=== PATIENT | male | born 1950 | race Caucasian/White ===

== ENCOUNTER 2022-10-29 18:13 | Inpatient (IN) ==
[2022-10-29] MEDS ORDERED: ONDANSETRON 4 MG/2 ML VIAL IV STA (18:55)
[2022-10-29] MEDS ORDERED: HYDROmorphone 1 MG/1 ML SYRINGE IV STA (18:55)
[2022-10-29] MEDS ORDERED: SODIUM CHLORIDE 0.9% 500 ML IV STA (18:55)
[2022-10-29 19:06] LABS: Basophils # 0.1 10*3/uL (0.0-0.2); Basophils % 0.4 % (0.0-0.8); Eosinophils % 0.3 % (0.00-10.9); Hematocrit 36.4 VOL% (42.0-52.0); Hemoglobin 12.2 GM/DL (14.0-18.0); Immature Granulocytes % 1.4 %; Immature Granulocytes Absolute 0.17 #; Lymphocytes # 1.3 10*3/uL (1.4-4.0); Lymphocytes % 10.8 % (21.2-54.2); Mean Corpuscular HGB Conc 33.5 GM/DL (32-36); Mean Corpuscular Volume 94.8 FL (87-102); Mean Platelet Volume 9.6 FL (9.6-12.0); Monocytes # 0.7 10*3/uL (0.11-0.8); Monocytes % 5.7 % (1.7-12.7); Neutrophils % 81.4 % (38.7-73.9); Platelet Count 219 T/CUMM (130-400); Red Blood Count 3.84 MC/CUMM (3.8-5.5); Red Cell Distribution Width 12.6 % (9.3-17.3); White Blood Count 11.8 T/CUMM (4-12)
[2022-10-29 19:12] LABS: INR 0.9
[2022-10-29 19:17] LABS: Alanine Aminotransferase 37 U/L (16-61); Albumin 3.9 G/DL (3.4-5.0); Alkaline Phosphatase 78 U/L (45-117); Aspartate Amino Transferase 27 U/L (0-37); Bilirubin,Total < 0.39 MG/DL (0.20-1.00); Blood Urea Nitrogen 26 MG/DL (7-18); Calcium 8.8 MG/DL (8.5-10.1); Carbon Dioxide 26 MMOL/L (21-32); Chloride 106 MMOL/L (98-107); Glucose 151 MG/DL (74-106); Osmolality,Calculated 284.5 MOS/KG (273-304); Potassium 4.1 MMOL/L (3.5-5.1); Sodium 139 MMOL/L (136-145); Total Protein 6.9 G/DL (6.4-8.2)
[2022-10-29] MEDS ORDERED: hydrALAZINE 20 MG/1 ML VIAL IV PRN (20:35)
[2022-10-29] MEDS ORDERED: MAGNESIUM SULF RIDER 2 GM/50 ML PREMIX IV ONE (20:35)
[2022-10-29 21:49] LABS: Calcium Oxalate Crystals,Urine Occasional /HPF (Few); Mucus,Urine Occasional /LPF (Occasional); RBC,Urine 24 /HPF (0-4); Squamous Epithelial Cell,Urine Occasional /HPF (0-10)
[2022-10-29 21:50] LABS: Bilirubin,Urine Negative (Negative); Blood, Urine Moderate mg/dL (Negative); Glucose,Urine (UA) Negative (Negative); Ketones,Urine Negative (Negative); Nitrite,Urine Negative (Negative); Protein,Urine Negative (Negative); Urine Appearance Clear (Clear); Urine Color Yellow (Yellow); Urine Specific Gravity >= 1.030 (1.001-1.035); Urine Urobilinogen 0.2 eU/dL (<2.0)
[2022-10-29] MEDS ORDERED: LACTATED RINGERS 1,000 ML IV SCH (22:30)
[2022-10-29] MEDS: HYDROmorphone 1 MG/1 ML SYRINGE IV PRN (23:16)
[2022-10-30] MEDS ORDERED: ONDANSETRON 4 MG/2 ML VIAL IV PRN ×2 (00:37→12:19)
[2022-10-30] MEDS ORDERED: MAGNESIUM HYDROXIDE SUSP 30 ML UDCUP PO PRN (00:37)
[2022-10-30] MEDS ORDERED: CLINDAMYCIN INJ 900 MG/50 ML PREMIX IV ONE ×3 (01:00→11:00)
[2022-10-30 01:56] LABS: Basophils # 0.1 10*3/uL (0.0-0.2); Basophils % 0.4 % (0.0-0.8); Eosinophils % 0.2 % (0.00-10.9); Hematocrit 33.5 VOL% (42.0-52.0); Hemoglobin 11.2 GM/DL (14.0-18.0); Immature Granulocytes % 0.6 %; Immature Granulocytes Absolute 0.08 #; Lymphocytes # 1.2 10*3/uL (1.4-4.0); Lymphocytes % 9.4 % (21.2-54.2); Mean Corpuscular HGB Conc 33.4 GM/DL (32-36); Mean Corpuscular Volume 94.9 FL (87-102); Mean Platelet Volume 9.2 FL (9.6-12.0); Monocytes % 7.8 % (1.7-12.7); Neutrophils % 81.6 % (38.7-73.9); Platelet Count 197 T/CUMM (130-400); Red Blood Count 3.53 MC/CUMM (3.8-5.5); Red Cell Distribution Width 12.7 % (9.3-17.3); White Blood Count 13.2 T/CUMM (4-12)
[2022-10-30 02:16] LABS: Albumin 3.6 G/DL (3.4-5.0); Bilirubin,Total 0.5 MG/DL (0.20-1.00); Calcium 8.6 MG/DL (8.5-10.1); Potassium 3.8 MMOL/L (3.5-5.1); Total Protein 6.2 G/DL (6.4-8.2)
[2022-10-30] MEDS: HYDROmorphone 1 MG/1 ML SYRINGE IV PRN ×2 (04:55→20:45)
[2022-10-30] MEDS ORDERED: LACTATED RINGERS 1,000 ML IV SCH (09:00)
[2022-10-30] MEDS ORDERED: fentaNYL 100 MCG/2 ML VIAL ONE (09:18)
[2022-10-30] MEDS ORDERED: MIDAZOLAM 2 MG/2 ML VIAL ONE (09:18)
[2022-10-30] MEDS ORDERED: LIDOCAINE 2% 5 ML VIAL ONE (09:19)
[2022-10-30] MEDS ORDERED: propofoL 200 MG/20 ML VIAL IV ONE ×2 (09:19→09:42)
[2022-10-30] MEDS ORDERED: LIDOCAINE 1% 5 ML VIAL ONE (09:21)
[2022-10-30] MEDS ORDERED: ROPIVACAINE 0.5% 30 ML VIAL ONE (09:22)
[2022-10-30] MEDS ORDERED: DEXAMETHASONE 4 MG/1 ML VIAL ONE (09:24)
[2022-10-30] MEDS ORDERED: BUPIVACAINE SPINAL 0.75% 2 ML AMP SPINAL ONE (09:45)
[2022-10-30] MEDS ORDERED: buprenorphine HCL 0.3 MG/ML VIAL ONE (09:46)
[2022-10-30] MEDS ORDERED: ePHEDrine 50 MG/ML VIAL ONE (10:26)
[2022-10-30] MEDS ORDERED: ONDANSETRON 4 MG/2 ML VIAL ONE (11:04)
[2022-10-30] MEDS ORDERED: ACETAMINOPHEN INJ 1,000 MG/100 ML VIAL IV ONE (11:10)
[2022-10-30] MEDS ORDERED: LACTATED RINGERS 1,000 ML IV ONE (11:11)
[2022-10-30] MEDS ORDERED: SEVOFLURANE 1 UNIT/15 MINUTE INH ONE ×5 (11:11→11:54)
[2022-10-30] MEDS ORDERED: GLYCOPYRROLATE 0.4 MG/2 ML VIAL ONE ×2 (11:24→11:26)
[2022-10-30] MEDS ORDERED: BISACODYL 10 MG SUPP RECTAL PRN (11:39)
[2022-10-30] MEDS ORDERED: diphenhydrAMINE CAP 25 MG CAPSULE PO PRN (11:39)
[2022-10-30] MEDS ORDERED: LACTULOSE 20 GM/30 ML UDCUP PO PRN (11:39)
[2022-10-30] MEDS ORDERED: [UNRECOGNIZED DRUG - OTHER] PO PRN (11:42)
[2022-10-30] MEDS ORDERED: HYDROmorphone 1 MG/1 ML SYRINGE IV PRN (12:19)
[2022-10-30] MEDS: DOXAZOSIN 4 MG TABLET PO SCH (14:13)
[2022-10-30] MEDS: amLODIPine 10 MG TABLET PO SCH (14:13)
[2022-10-30] MEDS: PANTOPRAZOLE 40 MG TABLET PO SCH (14:13)
[2022-10-30] MEDS: CLINDAMYCIN INJ 900 MG/50 ML PREMIX IV SCH (17:04)
[2022-10-30] MEDS ORDERED: PHENOL 1.4% THROAT SPRAY 177 ML BOTTLE PO PRN (20:27)
[2022-10-30] MEDS: SODIUM CHLORIDE 0.9% 1,000 ML IV SCH (21:56)
[2022-10-31] MEDS: CLINDAMYCIN INJ 900 MG/50 ML PREMIX IV SCH ×2 (00:01→08:51)
[2022-10-31] MEDS: SODIUM CHLORIDE 0.9% 1,000 ML IV SCH (00:03)
[2022-10-31 05:41] LABS: Basophils % 0.1 % (0.0-0.8); Hematocrit 29.6 VOL% (42.0-52.0); Hemoglobin 9.6 GM/DL (14.0-18.0); Immature Granulocytes % 0.6 %; Immature Granulocytes Absolute 0.08 #; Lymphocytes % 7.6 % (21.2-54.2); Mean Corpuscular HGB Conc 32.4 GM/DL (32-36); Mean Corpuscular Volume 98.7 FL (87-102); Mean Platelet Volume 9.1 FL (9.6-12.0); Monocytes # 1.4 10*3/uL (0.11-0.8); Monocytes % 10.4 % (1.7-12.7); Neutrophils % 81.3 % (38.7-73.9); Platelet Count 165 T/CUMM (130-400); White Blood Count 13.6 T/CUMM (4-12)
[2022-10-31 05:59] LABS: Calcium 8.8 MG/DL (8.5-10.1); Osmolality,Calculated 278.4 MOS/KG (273-304); Potassium 4.3 MMOL/L (3.5-5.1)
[2022-10-31] MEDS: FONDAPARINUX 2.5 MG/0.5 ML SYRINGE SUBCUT SCH (06:17)
[2022-10-31] MEDS: PANTOPRAZOLE 40 MG TABLET PO SCH ×2 (08:51→09:41)
[2022-10-31] MEDS: amLODIPine 10 MG TABLET PO SCH (08:51)
[2022-10-31] MEDS: DOXAZOSIN 4 MG TABLET PO SCH (08:51)
[2022-10-31] MEDS: HYDROmorphone 1 MG/1 ML SYRINGE IV PRN ×3 (08:51→20:29)
[2022-11-01 05:54] LABS: Basophils % 0.2 % (0.0-0.8); Eosinophils % 0.2 % (0.00-10.9); Hematocrit 31.7 VOL% (42.0-52.0); Hemoglobin 10.4 GM/DL (14.0-18.0); Immature Granulocytes % 0.6 %; Immature Granulocytes Absolute 0.07 #; Lymphocytes # 1.7 10*3/uL (1.4-4.0); Lymphocytes % 13.8 % (21.2-54.2); Mean Corpuscular HGB Conc 32.8 GM/DL (32-36); Mean Corpuscular Volume 96.6 FL (87-102); Mean Platelet Volume 9.3 FL (9.6-12.0); Monocytes # 1.2 10*3/uL (0.11-0.8); Monocytes % 9.9 % (1.7-12.7); Neutrophils % 75.3 % (38.7-73.9); Platelet Count 165 T/CUMM (130-400); Red Blood Count 3.28 MC/CUMM (3.8-5.5); White Blood Count 12.1 T/CUMM (4-12)
[2022-11-01] MEDS: FONDAPARINUX 2.5 MG/0.5 ML SYRINGE SUBCUT SCH (05:57)
[2022-11-01] MEDS: amLODIPine 10 MG TABLET PO SCH (09:02)
[2022-11-01] MEDS: DOXAZOSIN 4 MG TABLET PO SCH (09:02)
[2022-11-01] MEDS: PANTOPRAZOLE 40 MG TABLET PO SCH ×2 (09:02)
[2022-11-01 11:42] VITALS: BP 140/89
== END 2022-11-01 11:57 | disposition swing bed (61) | DRG 481 ==
LOC: EDBD → EDUNIT# → N.ED 18:13 → SUATTDRO 20:22 → N.3E 20:22
PROVIDERS: ADMIT Orthopaedic Surgery; ATTEND Hospitalist